=== PATIENT | female | born 1950 | race Caucasian/White ===

== ENCOUNTER 2023-04-08 01:44 | Day surgery (SDC) | payer MEDICARE, BC, SELFPAY ==
--- NOTE | 2023-04-03 08:14 | PC.NURSE ---
Report to the Outpatient Waiting Room, entrance under the green pavilion located off [facility], at time _0700 on date __04/08/23 . Planned Procedure Time: _0900 . Time changes happen often and if your time is changed the preop area will call you the afternoon before. - You and your visitor will be asked to self-screen and do not enter if you have any COVID symptoms. - A mask is optional within the hospital at this time. Patients may have clear liquids (water, carbonated beverages, clear teas, apple juice) until 3 hours prior to surgery( 6 AM ) with a maximum of 20 ounces. - No food from midnight until time of surgery Take the following medications with a SIP of water the morning of surgery: ___SERTRALINE DO NOT STOP ANY OF YOUR OTHER PRESCRIPTION MEDICATIONS PRIOR TO SURGERY ?EXCEPT THE FOLLOWING Medications to discontinue per physician __ALL VITAMINS AND SUPPLEMENTS 3 DAYS PRE OP.LAST DOSE 04/04/[address] MTZ Please no make-up, nail jordanian, hairspray, perfume, deodorant, or body powder the day of surgery. No jewelry (including any body piercings) or valuables the day of surgery, leave them at home. Please take a shower or bath the night before, or the morning of, surgery with an antibacterial soap. Wear comfortable, loose fitting clothing. Children are encouraged to wear pajamas. - Jewelry must be removed prior to entering the operating room. Rings and piercings that are not removed may be cut off. - The hospital will not accept responsibility for valuables. - Please leave all valuables, including medications, at home the day of surgery. If you are going home after surgery, a licensed local truck driver must drive you home. - NO public transportation without another adult if you receive anesthesia. - We recommend that an adult stay with you for 24 hours following discharge. - We also recommend that you do not drive, make important decision, drink alcoholic beverages, or take any drugs that were not prescribed by your health care provider for at least 24 hours after your discharge time. For Pediatric surgeries, we recommend two adults accompany the child home. Follow any additional instructions given to you from your surgeon. If you or anyone in your household have experienced Covid symptoms in the past week, please notify your surgeon or the nurse liaison at the phone number below for possible testing. Telephone instructions given to _PATIENT and asked if any additional questions and then verbalized understanding. Patient advised to call surgeon office or pre surgery nurse liaison [phone] if any additional questions.
[2023-04-03 08:20] VITALS: BMI 39.9
[2023-04-08] VITALS (9 sets, daily range): BP systolic 108–152; BP diastolic 66–90; PULSE 64–70; RESP 10–20; TEMP 36.3–36.7; O2SAT 94–100
[2023-04-08] MEDS: ACETAMINOPHEN 500 MG TABLET 1000 MG PO (07:55)
[2023-04-08] MEDS: LACTATED RINGERS 1,000 ML 30 ML IV CONT (08:40)
--- NOTE | 2023-04-08 09:20 | WPDANESEPPF ---
Anes - Initial Pre Proc Eval Procedure: Operation Date: 04/08/23 09:45 Proposed Procedures p Right Ear Fat Graft Tympanoplasty - Dontrell Galloway MD Date/Time: 04/08/23 09:20 Surgeon: Dontrell Galloway MD Pre Op Diagnosis: right ear drum perforation Patient Data Age: 73 Gender: F Height: 1.65 m Weight: 121.1 kg Last Vital Signs Temp 36.7 C 04/08/23 08:01 Pulse 67 04/08/23 08:01 Resp 20 04/08/23 08:01 BP 108/88 04/08/23 08:01 Pulse Ox 94 04/08/23 08:01 O2 Del Method Room Air 04/08/23 08:01 Allergies Allergy/AdvReac Type Severity Reaction Status Date / Time No Known Allergies Allergy Verified 04/03/23 07:58 Home Medications Medication Instructions Recorded Confirmed Type aspirin 81 mg tablet,delayed 81 mg PO QPM 04/03/23 04/03/23 History release (Adult Low Dose Aspirin) calcium carbonate 600 mg-vitamin 1 tablet PO DAILY 04/03/23 04/03/23 History D3 10 mcg (400 unit) tablet (Calcium 600 + D(3)) doxycycline hyclate 100 mg capsule 100 mg PO BID ROSACEA 04/03/23 04/03/23 History levothyroxine 100 mcg tablet 100 mcg PO HS 04/03/23 04/03/23 History mirabegron 50 mg tablet,extended 50 mg PO DAILY 04/03/23 04/03/23 History release 24 hr (Myrbetriq) multivitamin 1 tablet PO DAILY 04/03/23 04/03/23 History omega 8-pdn-djp-fish oil 1,200 mg 1 cap PO BID 04/03/23 04/03/23 History (144 mg-216 mg) capsule (Fish Oil) sertraline 100 mg tablet 100 mg PO DAILY 04/03/23 04/03/23 History Patient hx anesthesia problems: none Family hx anesthesia problems: none Results Review: All pre-operative results and documents have been reviewed as part of the pre-operative evaluation. [facility] Past Medical History Medical History (Updated 04/08/23 @ 09:20 by Beto Vanegas MD) Morbid obesity ARIANA (obstructive sleep apnea) Surgical History Surgical History (Updated 04/08/23 @ 09:23 by Beto Vanegas MD) H/O: hysterectomy History of cholecystectomy History of total knee arthroplasty Social History Social History Years smoked: 20 Smoking status: Former smoker Tobacco type: cigarettes Smoking end date: 04/22/17 Alcohol intake: current Alcohol use details: 4 DRINKS PER MONTH Living arrangements: alone Spiritual care concerns: No Anes - Eval Final PreProcedure Day of Procedure 04/08/23 09:20 Patient weight: morbidly obese Heart: regular rate and rhythm Lungs: clear to auscultation Airway: Mallampati scale class II Neurological: alert and oriented Last oral intake: >/= 8 hours ASA classification: III Emergent: no Anesthetic plan: proceed Anesthesia type and monitoring: general ETT and standard monitoring Results Review: All pre-operative results and documents have been reviewed as part of the pre-operative evaluation. Informed Consent: The patient's anesthetic plan and its attendant risks and benefits were discussed with the patient/family/POA. Questions were solicited and answers provided to the satisfaction of the patient/family/POA.
--- NOTE | 2023-04-08 09:39 | PM.IMHP ---
H&P: HPI History of Present Illness Date/Time: 04/08/23 09:39 Chief Complaint: TM perforation, right Narrative: hx of tubes, right TM perforation and recurrent otorrhea and hearing loss. Review of Systems Review of Systems: All systems reviewed & are unremarkable except as noted in HPI and below PMFSH Past Medical History Medical History Morbid obesity ARIANA (obstructive sleep apnea) Surgical History Surgical History H/O: hysterectomy History of cholecystectomy History of total knee arthroplasty Social History Social History Years smoked: 20 Smoking status: Former smoker Tobacco type: cigarettes Smoking end date: 04/22/17 Alcohol intake: current Alcohol use details: 4 DRINKS PER MONTH Living arrangements: alone Spiritual care concerns: No Meds Home Medications and Allergies Home Medications Medication Instructions Recorded Confirmed Type aspirin 81 mg tablet,delayed 81 mg PO QPM 04/03/23 04/03/23 History release (Adult Low Dose Aspirin) calcium carbonate 600 mg-vitamin 1 tablet PO DAILY 04/03/23 04/03/23 History D3 10 mcg (400 unit) tablet (Calcium 600 + D(3)) doxycycline hyclate 100 mg capsule 100 mg PO BID ROSACEA 04/03/23 04/03/23 History levothyroxine 100 mcg tablet 100 mcg PO HS 04/03/23 04/03/23 History mirabegron 50 mg tablet,extended 50 mg PO DAILY 04/03/23 04/03/23 History release 24 hr (Myrbetriq) multivitamin 1 tablet PO DAILY 04/03/23 04/03/23 History omega 0-dvn-jpm-fish oil 1,200 mg 1 cap PO BID 04/03/23 04/03/23 History (144 mg-216 mg) capsule (Fish Oil) sertraline 100 mg tablet 100 mg PO DAILY 04/03/23 04/03/23 History Allergies Allergy/AdvReac Type Severity Reaction Status Date / Time No Known Allergies Allergy Verified 04/03/23 07:58 Vital Signs Vital Signs - 24 hr 04/08/23 08:01 Temperature 36.7 C Pulse Rate 67 Respiratory Rate 20 Blood Pressure 108/88 Pulse Oximetry 94 Oxygen Delivery Room Air Exam Narrative: Examined in preop, 20-30% central perforation, dry edges. Rest of exam wnl. Assessment and Plan Assessment and plan (1) Perforation of right tympanic membrane: Code(s): H72.91 - Unspecified perforation of tympanic membrane, right ear Status: Acute Plan Nichole has right TM perforation, here for repair. Anticipate fat graft myringoplasty, possible tympanoplasty based on ability to close during surgery. Right ear marked. Pt agrees to proceed, all questions answered, r/b/a reviewed.
--- NOTE | 2023-04-08 09:42 | WPDHPUPDATE1 ---
History and Physical Update Update Date/Time: 04/08/23 09:42 History and Physical has been reviewed, including an updated exam of the patient. There are NO changes in the patient's condition. Risks, benefits, and alternatives have been discussed and questions answered. Patient agrees to proceed with procedure.
[2023-04-08] MEDS: ceFAZolin 3 GM/D5W 100 ML 100 ML IVPB (09:58)
[2023-04-08] MEDS: LIDO 1%/EPINEPHRINE 1:100,000 50 ML VIAL INFILTRATE (10:22)
[2023-04-08] MEDS: MUPIROCIN 2% OINT 22 GM TUBE 1 APPLIC TOPICAL (10:40)
--- NOTE | 2023-04-08 10:45 | W.PM.PROC2 ---
Procedure Note - Detailed Date of Procedure 04/08/23 Pre-op Diagnosis right ear drum perforation Post-op Diagnosis Same Procedure Performed right fat graft myringoplasty Surgeon Dontrell Galloway MD Anesthesia General Indications right TM perforation Findings 20% central perforation Description of Procedure On date of surgery, the patient was identified in the preoperative holding area. Consent signed and verified. The correct ear was marked. The patient was then taken back to the OR and placed under general anesthesia via endotracheal tube. A timeout was performed verifying the correct patient identity, laterality and procedure which they were. The patient was then prepped and draped for right ear surgery. The ear was first examined under binocular microscope. This revealed a 20% central perforation of the tympanic membrane, amenable to fat grafting. The edges were freshened using a becker pick with a postage stamp technique. Next, a small amount of gelfoam packing was secured in the middle ear space to create a bed for the graft. Attention was then directed to the ear lobule. A 1cm incision was made at the inferior aspect of the lobule after 1% lidocaine with 1:100k epinephrine was infiltrated. A piece of fat was harvested for grafting with care to avoid injury to surrounding skin. The harvest site was then closed with 5-0 fast absorbing suture in an interrupted fashion. The fat graft was then placed on the gelfoam, completely covering the perforation. Satisfied with placement, A cotton ball was placed in the ear canal, ointment and bandage placed on the harvest site, and care of the patient was returned to anesthesia who woke the patient up, extubated and transferred the patient to the PACU for recovery in stable condition without complication. Estimated Blood Loss 1 Drains No Packing No Pathology None sent Complications No immediate complications Condition Stable Disposition PACU
[2023-04-08] MEDS: ONDANSETRON INJ 4 MG/2 ML VIAL IV PUSH (11:18)
== END 2023-04-08 12:48 | disposition home or self-care (01) ==
PROVIDERS: Visit Provider Otolaryngology
PROC: (CPT 69620; principal; 2023-04-08 09:45)
DX: H72.91 Unspecified perforation of tympanic membrane, right ear (principal); G47.33 Obstructive sleep apnea (adult) (pediatric); Z79.82 Long term (current) use of aspirin; E66.01 Morbid (severe) obesity due to excess calories; Z68.41 Body mass index [BMI] 40.0-44.9, adult; Z87.891 Personal history of nicotine dependence
CPT/HCPCS: 69620; A9270; J0171; J0330; J0690; J1100; J2405; J2704; J3010; J7120